=== PATIENT | female | born 1930 | race Caucasian/White ===

== ENCOUNTER 2017-05-18 18:33 | Inpatient (IN) | payer MEDICARE, BC ==
[~2017-05-18] VITALS: Ht 165.1 cm; Wt 81.6 kg
--- NOTE | 2017-05-18 18:45 | NUR ---
[id number] FROM [facility] WHILE SITTING ON A WHEELCHAIR. NO TRAUMA. HYPOTENSIVE IN FIELD 63/48, 400CC IV NS GIVEN BY EMS. PATIENT IS A/OX 1, BREATHING EVEN AND UNLABORED. NO LONGER HYPOTENSIVE UPON ARRIVAL. PATIENT'S VITALS STABLE. SAFETY AND COMFORT MEASURES IN PLACE. AWAITING MD ORDERS.
--- NOTE | 2017-05-18 18:55 | NUR ---
DAUGHTERS, FELIX AGGIE [phone], AVERY [phone].
[2017-05-18] MEDS ORDERED: IV NS 0.9% 1,000 ML BAG IV ONE (19:00)
--- NOTE | 2017-05-18 19:02 | NUR ---
CORRUGATOR SUPERVISOR AT BEDSIDE FOR BLOOD DRAW.
[2017-05-18 19:11] LABS: BASOPHILS # (AUTO) 0.3 /CMM (0.0-0.2); BASOPHILS % (AUTO) 2.4 % (0.0-2.0); EOSINOPHILS # (AUTO) 0.3 /CMM (0.0-0.7); EOSINOPHILS % (AUTO) 2.1 % (0.0-6.0); HEMATOCRIT 46 % (33-45); HEMOGLOBIN 15.3 g/dL (11.5-14.8); LYMPHOCYTES # (AUTO) 1.4 /CMM (0.8-4.8); LYMPHOCYTES % (AUTO) 11.3 % (20.0-44.0); MEAN CORPUSCULAR HEMOGLOBIN 31 PG (26.0-33.0); MEAN CORPUSCULAR HGB CONC 33 g/dl (31.0-36.0); MEAN CORPUSCULAR VOLUME 94 fL (82-100); MONOCYTES # (AUTO) 0.8 /CMM (0.1-1.30); MONOCYTES % (AUTO) 6.7 % (2.0-12.0); NEUTROPHILS # (AUTO) 9.3 /CMM (1.8-8.9); NEUTROPHILS % (AUTO) 77.5 % (43.0-81.0); PLATELET COUNT (AUTO) 229 /CMM (150-450); RDW COEFFICIENT OF VARIATION 13.4 (11.5-15.0); RED BLOOD CELL COUNT(AUTO) 4.86 MIL/uL (4.0-5.2); WHITE BLOOD COUNT (AUTO) 12.1 K/uL (4.3-11.0)
--- NOTE | 2017-05-18 19:19 | NUR ---
Report given to Jesus LOMBARDI for [facility].
--- NOTE | 2017-05-18 19:20 | NUR ---
RECEIVED REPORT FROM HARJIT ADAMS FOR [facility]. PT APPEARS COMFORTABLE. RADIOLOGY AT BEDSIDE FOR CXR.
[2017-05-18 19:21] LABS: CALCIUM, SERUM 9.7 mg/dL (8.5-10.1); CARBON DIOXIDE 31 mmol/L (21-32); CHLORIDE 103 mmol/L (98-107); CREATININE 1.1 mg/dL (0.6-1.3); GLUCOSE 132 mg/dL (74-106); POTASSIUM 3.8 mmol/L (3.5-5.1); SODIUM SERUM 140 mmol/L (136-145); UREA NITROGEN, BLOOD 23 mg/dL (7-18)
[2017-05-18 19:25] LABS: INR 0.97 (0.87-1.13); PROTHROMBIN TIME 10.1 SECS (9.5-12.7)
[2017-05-18 19:29] LABS: TROPONIN I < 0.017 ng/mL (0.00-0.056)
[2017-05-18] MEDS ORDERED: IV NS 0.9% 250 ML IV ONE (19:31)
[2017-05-18] MEDS ORDERED: IOHEXOL-350 100 ML VIAL IV ONE (19:31)
[2017-05-18 19:34] LABS: ALANINE AMINOTRANSFERASE 25 U/L (12-78); ALBUMIN 3.6 g/dL (3.4-5.0); ALKALINE PHOSPHATASE 80 U/L (46-116); ASPARTATE AMINOTRANSFERASE 23 U/L (15-37); B-TYPE NATRIURETIC PEPTIDE 498 PG/ML (0-125); BILIRUBIN,DIRECT 0.1 mg/dL (0.0-0.2); BILIRUBIN,TOTAL 0.5 mg/dL (0.2-1.0); TOTAL PROTEIN, SERUM 6.5 g/dL (6.4-8.2)
--- NOTE | 2017-05-18 19:38 | NUR ---
PT TO CT.
--- NOTE | 2017-05-18 20:00 | NUR ---
CALLED RN SUPP FOR BED
--- NOTE | 2017-05-18 20:05 | NUR ---
PT RETURNED FROM CT.
--- NOTE | 2017-05-18 20:08 | NUR ---
PAGED CATHIE FOR BED 8
--- NOTE | 2017-05-18 20:23 | NUR ---
URINE COLLECTED. CALLED LAB FOR AUTOMATION AND CONTROLS SUPERVISOR.
[2017-05-18 20:30] LABS: APPEARANCE,URINE Clear (CLEAR); BILIRUBIN,URINE Negative (NEGATIVE); BLOOD, URINE Trace-intact Ery/uL (NEGATIVE); COLOR,URINE Yellow (YELLOW); KETONES,URINE Negative (NEGATIVE); LEUKOCYTE ESTERASE ,URINE Negative (NEGATIVE); NITRITE, URINE Negative (NEGATIVE); PROTEIN,URINE Negative (NEGATIVE); UGLUCOSE Negative (NEGATIVE); UROBILINOGEN,URINE 0.2 EU/dL (0.2)
--- NOTE | 2017-05-18 20:32 | NUR ---
REPORT GIVEN TO HARJIT AMOR FOR TELE BED 310-2
--- NOTE | 2017-05-18 20:41 | NUR ---
INFORMED RN ZULEYMA IVF TRANSFUSING ON ADMISSION.
[2017-05-18 20:42] LABS: SQUAMOUS EPITHELIAL CELL,UR Moderate /HPF (None Seen)
[2017-05-18 20:43] LABS: BACTERIA,URINE Few /HPF (None Seen); RBC,URINE 0-2 /HPF (0-2); WBC,URINE 0-2 /HPF (0-3)
--- NOTE | 2017-05-18 20:59 | NUR ---
PT TRANSFERRED TO [facility] BED 310-2 PER ACLS PROTOCOL.
--- NOTE | 2017-05-18 21:30 | NUR ---
RN OPENING NOTES RECEIVED PATIENT FROM ER IN STABLE CONDITION. ALERT AND ORIENTED X3. NO C/O PAIN AT THIS TIME. VS TABLE. TELE /SINUS RHYTHM 73 BPM. RESPIRATIONS EVEN AND UNLABORED. IV ACCES ON LEFT AC PATENT AND INTACT. FLUSHING WELL. NO REDNESS OR INFILTRATION NOTED. BS X4. PICTURES TAKEN AND PLACED IN THE CHART. AWAITING FOR MD ORDER. BED IN LOW AND LOCKED POSITION. SIDE RAILS X2. CALL LIGHT WITHIN EASY REACH. CONTINUE TO MONITOR AND ASSESS DURING SHIFT.
[2017-05-18 22:00] VITALS: BP 131/87
[2017-05-18] MEDS ORDERED: ONDANSETRON HCL/PF 4 MG/2 ML VIAL IVP PRN (22:00)
[2017-05-18] MEDS ORDERED: ACETAMINOPHEN 325 MG TABLET PO PRN (22:00)
[2017-05-18] MEDS: IV NS 0.9% 1,000 ML IV PRN (23:01)
[2017-05-19] VITALS: BP 119/77
[2017-05-19] MEDS ORDERED: LORAZEPAM INJ 2 MG/ML VIAL IVP PRN (03:00)
[2017-05-19] MEDS ORDERED: LEVOFLOXACIN 500 MG /D5W 100ML 500 MG in PREMIX 1 EA IV SCH (03:00)
[2017-05-19] MEDS ORDERED: LEVOFLOXACIN 500 MG /D5W 100ML 100 ML IV ONE (03:41)
[2017-05-19 04:00] VITALS: BP 137/85
[2017-05-19 07:27] LABS: BASOPHILS % (AUTO) 0.4 % (0.0-2.0); EOSINOPHILS # (AUTO) 0.4 /CMM (0.0-0.7); EOSINOPHILS % (AUTO) 3.9 % (0.0-6.0); HEMATOCRIT 45 % (33-45); HEMOGLOBIN 14.9 g/dL (11.5-14.8); LYMPHOCYTES # (AUTO) 1.8 /CMM (0.8-4.8); LYMPHOCYTES % (AUTO) 19.7 % (20.0-44.0); MEAN CORPUSCULAR HEMOGLOBIN 32 PG (26.0-33.0); MEAN CORPUSCULAR HGB CONC 34 g/dl (31.0-36.0); MEAN CORPUSCULAR VOLUME 95 fL (82-100); MONOCYTES # (AUTO) 0.8 /CMM (0.1-1.30); MONOCYTES % (AUTO) 8.5 % (2.0-12.0); NEUTROPHILS % (AUTO) 67.5 % (43.0-81.0); PLATELET COUNT (AUTO) 210 /CMM (150-450); RDW COEFFICIENT OF VARIATION 13.9 (11.5-15.0); RED BLOOD CELL COUNT(AUTO) 4.67 MIL/uL (4.0-5.2); WHITE BLOOD COUNT (AUTO) 8.9 K/uL (4.3-11.0)
--- NOTE | 2017-05-19 07:30 | NUR ---
RN CLOSING NOTES PATIENT SLEEPING IN BED, EASILY AROUSABLE. ALERT AND ORIENTED X3. VS TABLE. RESPIRATIONS EVEN AND UNLABORED. IV ACCES ON LEFT AC PATENT AND INTACT. INFUSING NS AT 80 ML/HR. NO REDNESS OR INFILTRATION NOTED. ALL MEDICATIONS GIVEN PER MD ORDER. BED IN LOW AND LOCKED POSITION. SIDE RAILS X2. CALL LIGHT WITHIN EASY REACH. WILL ENDORSE TO RN DAY SHIFT FOR CONTINUITY OF CARE.
--- NOTE | 2017-05-19 07:30 | NUR ---
RN NOTES RECEIVED PATIENT IN BED RESTING, RESPONSIVE, A/0X2-3, FORGETFUL. NO ACUTE DISTRESS, NO SOB NOTED. DENIES ANY PAIN OR DISCOMFORT AT THIS TIME. ON TELEMONITOR SR 76. IV SITE INTACT AND PATENT, FLUIDS INFUSING WELL. KEPT PATIENT SAFE AND COMFORTABLE. BED IN LOCKED, LOW POSITION, SIDERAILS UP X2, CALL LIGHT IN REACH. WILL CONTINUE TO MONITOR ACCORDINGLY.
[2017-05-19 07:52] LABS: CALCIUM, SERUM 9.1 mg/dL (8.5-10.1); CARBON DIOXIDE 29 mmol/L (21-32); CHLORIDE 105 mmol/L (98-107); CREATININE 0.8 mg/dL (0.6-1.3); GLUCOSE 94 mg/dL (74-106); MAGNESIUM 1.7 mg/dL (1.8-2.4); PHOSPHORUS 3.3 mg/dL (2.5-4.9); POTASSIUM 3.1 mmol/L (3.5-5.1); SODIUM SERUM 142 mmol/L (136-145); UREA NITROGEN, BLOOD 16 mg/dL (7-18)
[2017-05-19 08:00] VITALS: BP 141/77
[2017-05-19 08:33] LABS: THYROID STIMULATING HORMONE 2.189 uIU/mL (0.358-3.74)
[2017-05-19 08:35] LABS: TROPONIN I 0.023 ng/mL (0.00-0.056)
[2017-05-19 09:00] VITALS: BP_SYST 122; BP_SYST 129; BP_SYST 135; BP_DIAS 69; BP_DIAS 77; BP_DIAS 82
--- NOTE | 2017-05-19 09:00 | NUR ---
RN NOTES: ORTHOSTATIC BP SUPINE: BP= 135/82, HR= 86 SITTING: BP= 122/77, HR= 88 STANDING: BP= 129/69, HR= 100
[2017-05-19] MEDS: PANTOPRAZOLE 40 MG TABLET.DR PO SCH (10:16)
[2017-05-19] MEDS: Magnesium 1GM/D5W 100ML PREMIX 100 ML IV SCH ×2 (12:07→13:13)
[2017-05-19] MEDS: IV NS 0.9% 1,000 ML IV PRN (12:12)
[2017-05-19] MEDS: POTASSIUM CHLORIDE 20 MEQ TAB.PRT.SR PO SCH ×2 (12:39→19:29)
[2017-05-19 16:00] VITALS: BP_SYST 154; BP_SYST 167; BP_DIAS 91; BP_DIAS 95
[2017-05-19] MEDS ORDERED: CLOP75TA2 PO (17:56)
[2017-05-19] MEDS ORDERED: DONE5TAB3 PO (17:56)
[2017-05-19] MEDS ORDERED: CALC300T4 PO (17:56)
[2017-05-19] MEDS ORDERED: QUET25TA PO (17:56)
[2017-05-19] MEDS ORDERED: ATEN100T PO (17:56)
[2017-05-19] MEDS ORDERED: BRIM5DRO EACHEYE (17:56)
[2017-05-19] MEDS ORDERED: BIMA2.5D5 EACHEYE (17:56)
[2017-05-19] MEDS ORDERED: POT25TAB5 PO (17:56)
[2017-05-19] MEDS ORDERED: FLEC100T3 PO (17:56)
[2017-05-19] MEDS ORDERED: AMLO5TAB4 PO (17:56)
[2017-05-19] MEDS ORDERED: LATA2.5D2 EACHEYE (17:56)
[2017-05-19] MEDS ORDERED: POTA25TA7 PO (17:56)
[2017-05-19] MEDS ORDERED: MELO15TA13 PO (17:56)
[2017-05-19] MEDS ORDERED: LEVE500T9 PO (17:56)
[2017-05-19] MEDS ORDERED: LISI-607 PO (17:56)
[2017-05-19] MEDS ORDERED: MULT-331 PO (17:56)
[2017-05-19] MEDS ORDERED: CALC-838 PO (17:56)
--- NOTE | 2017-05-19 19:00 | NUR ---
RN NOTES PER SHERRELL GONZALEZ NP, CONTINUE ALL HOME MEDICATIONS ON MED RECON.
--- NOTE | 2017-05-19 19:30 | NUR ---
MS/RN NOTES RECEIVED PT. LYING IN BED. PT. IS AWAKE, ALERT AND ORIENTED X2-3 AND IS FORGETFUL. BREATHING EVEN AND UNLABORED ON ROOM AIR. NO SOB, RESPIRATORY DISTRESS OR COMPLAINTS OF PAIN NOTED AT THIS TIME. PT. DENIES FEELING LIGHTHEADED OR DIZZY. PT. WITH LEFT AC 20 GAUGE PERIPHERAL IV PRESENT, PATENT AND INTACT ADMINISTERING TO PT. NS @ 40ML/HR. PT. INSTRUCTED TO USE CALL LIGHT FOR ASSISTANCE BEFORE AMBULATING. PT. VERBALIZED UNDERSTANDING. BED LOCKED AND IN LOWEST POSITION, SIDE RAILS UP X2, CALL LIGHT WITHIN REACH, BED ALARM ON, WILL CONTINUE TO MONITOR.
--- NOTE | 2017-05-19 19:30 | NUR ---
RN CLOSING NOTES PATIENT IN BED RESTING. NO ACUTE DISTRESS, NO SOB NOTED. ALL NEEDS ATTENDED AND PROVIDED. KEPT PATIENT SAFE AND COMFORTABLE. BED IN LOCKED, LOW POSITION, SIDERAILS UPX2, CALL LIGHT IN REACH. ENDORSED TO REINFORCING METAL WORKER RN FOR [facility]. FAXED MED RECON TO PHARMACY, VERIFIED BY CHERRI THAT THEY GOT IT.
[2017-05-19 22:00] VITALS: BP 123/97
[2017-05-20] MEDS ORDERED: LEVETIRACETAM (250 MG) 250 MG TABLET PO ONE (00:48)
[2017-05-20] MEDS ORDERED: LEVETIRACETAM (250 MG) 250 MG TABLET PO SCH ×2 (01:00→09:00)
[2017-05-20] MEDS ORDERED: LEVOFLOXACIN 250 MG /D5W 50 ML 250 MG in PREMIX 1 EA IV SCH ×2 (06:00→09:00)
--- NOTE | 2017-05-20 06:27 | NUR ---
MS/RN NOTES PT. IS LYING IN BED RESTING. BREATHING EVEN AND UNLABORED ON ROOM AIR. NO SOB, RESPIRATORY DISTRESS OR COMPLAINTS OF PAIN NOTED AT THIS TIME. PT. HAS NO COMPLAINTS OF FEELING LIGHTHEADED OR DIZZY AT THIS TIME AND THROUGHOUT SHIFT. PT. WITH LEFT AC 20 GAUGE PERIPHERAL IV PRESENT, PATENT AND INTACT ADMINISTERING TO PT. NS @ 40ML/HR. ALL PT. NEEDS MET. SEIZURE PRECAUTIONS IMPLEMENTED AND IN PLACE. FREQUENT NEURO CHECKS PERFORMED. BED LOCKED AND IN LOWEST POSITION, SIDE RAILS UP X2, CALL LIGHT WITHIN REACH, BED ALARM ON, WILL ENDORSE TO DAYSHIFT NURSE FOR CONTINUITY OF CARE.
[2017-05-20 06:32] LABS: BASOPHILS % (AUTO) 0.3 % (0.0-2.0); EOSINOPHILS # (AUTO) 0.4 /CMM (0.0-0.7); EOSINOPHILS % (AUTO) 3.9 % (0.0-6.0); HEMATOCRIT 47 % (33-45); HEMOGLOBIN 15.7 g/dL (11.5-14.8); LYMPHOCYTES # (AUTO) 1.4 /CMM (0.8-4.8); LYMPHOCYTES % (AUTO) 14.8 % (20.0-44.0); MEAN CORPUSCULAR HEMOGLOBIN 32 PG (26.0-33.0); MEAN CORPUSCULAR HGB CONC 34 g/dl (31.0-36.0); MEAN CORPUSCULAR VOLUME 95 fL (82-100); MONOCYTES # (AUTO) 0.8 /CMM (0.1-1.30); NEUTROPHILS # (AUTO) 7.1 /CMM (1.8-8.9); PLATELET COUNT (AUTO) 204 /CMM (150-450); RDW COEFFICIENT OF VARIATION 13.9 (11.5-15.0); RED BLOOD CELL COUNT(AUTO) 4.96 MIL/uL (4.0-5.2); WHITE BLOOD COUNT (AUTO) 9.7 K/uL (4.3-11.0)
[2017-05-20 06:49] LABS: TROPONIN I < 0.017 ng/mL (0.00-0.056)
[2017-05-20 06:50] LABS: ALANINE AMINOTRANSFERASE 29 U/L (12-78); ALBUMIN 3.5 g/dL (3.4-5.0); ALKALINE PHOSPHATASE 80 U/L (46-116); ASPARTATE AMINOTRANSFERASE 29 U/L (15-37); BILIRUBIN,TOTAL 0.9 mg/dL (0.2-1.0); CALCIUM, SERUM 9.6 mg/dL (8.5-10.1); CARBON DIOXIDE 35 mmol/L (21-32); CHLORIDE 104 mmol/L (98-107); CREATININE 0.8 mg/dL (0.6-1.3); GLUCOSE 93 mg/dL (74-106); MAGNESIUM 1.9 mg/dL (1.8-2.4); POTASSIUM 4.4 mmol/L (3.5-5.1); SODIUM SERUM 143 mmol/L (136-145); TOTAL PROTEIN, SERUM 6.7 g/dL (6.4-8.2); UREA NITROGEN, BLOOD 13 mg/dL (7-18)
[2017-05-20 08:00] VITALS: BP_SYST 144; BP_SYST 156; BP_SYST 159; BP_SYST 164; BP_DIAS 103; BP_DIAS 109; BP_DIAS 88
--- NOTE | 2017-05-20 08:00 | NUR ---
MS RN AM NOTES RECEIVED PATIENT ALERT AND ORIENTED X3. NO C/O PAIN AT THIS TIME. VS STABLE. RESPIRATIONS EVEN AND UNLABORED. IV ACCES ON LEFT AC PATENT AND INTACT. FLUSHING WELL. NO REDNESS OR INFILTRATION NOTED.BED IN LOW AND LOCKED POSITION. SIDE RAILS X2. CALL LIGHT WITHIN EASY REACH. CONTINUE TO MONITOR.
[2017-05-20] MEDS ORDERED: CALCIUM CARBONATE 500 MG TAB.CHEW PO PRN ×2 (08:30→13:30)
[2017-05-20] MEDS ORDERED: AMLODIPINE BESYLATE 5 MG TABLET PO SCH (09:00)
[2017-05-20] MEDS ORDERED: FLECAINIDE ACETATE (100 MG) 100 MG TABLET PO SCH (09:00)
[2017-05-20] MEDS ORDERED: CHOLECALCIFEROL 1,000 UNIT TABLET (VIT D3) PO SCH (09:00)
[2017-05-20] MEDS: PANTOPRAZOLE 40 MG TABLET.DR PO SCH (09:12)
[2017-05-20] MEDS: MELOXICAM 7.5 MG TABLET PO SCH (09:33)
[2017-05-20] MEDS: CLOPIDOGREL BISULFATE 75 MG TABLET PO SCH (09:33)
[2017-05-20] MEDS: MULTIVITAMINS,THERAGRAN 1 UDTAB TABLET PO SCH (09:33)
[2017-05-20] MEDS: LEVETIRACETAM (250 MG) 250 MG TABLET PO SCH ×2 (09:34→21:08)
[2017-05-20] MEDS: LISINOPRIL (5MG) 5 MG TABLET PO SCH ×2 (09:34→17:17)
[2017-05-20 12:15] VITALS: BP 143/73
[2017-05-20] MEDS: BRIMONIDINE TARTRATE OPHT SOLN 5 ML BOTTLE EACHEYE SCH ×3 (12:51→17:16)
--- NOTE | 2017-05-20 13:00 | NUR ---
ALPHAGAN EYEDROPS NOT GIVEN BECAUSE IT WAS JUST ADMINISTERED AN HOUR AGO.
[2017-05-20 16:00] VITALS: BP 142/89
[2017-05-20] MEDS: LATANOPROST EYE DROP 0.005% 2.5 ML BOTTLE EACHEYE SCH (17:18)
[2017-05-20] MEDS ORDERED: BIMATOPROST 2.5 ML DROPS OP SCH (18:00)
--- NOTE | 2017-05-20 18:03 | NUR ---
PT RESTING IN BED DENYING ANY PAIN OR DISTRESS.ON TELE WITH SR WITH 1ST DEGREE AV BLOCK.WILL CONTINUE TO MONITOR.
--- NOTE | 2017-05-20 19:30 | NUR ---
MS/PHONE SCREENER; RECEIVED PT IN BED AWAKE, ALERT AND ORIENTED X 3. SPEECH IS CLEAR. BREATHING NON LABORED. DENIES ANY PAIN. SEIZURE'S PRECAUTION OBSERVED. SIDE RAILS ARE UP AND PADDED FOR SAFETY. BED ON LOWER POSITION AND LOCKED FOR SAFETY. PT ON TELEMETRY TO MONITOR. HL ON LAC # 20 FLUSHED WITH NS PATENT AND INTACT NO PAIN NOR REDNESS AND SWELLING. CONTINUE TO MONITOR.
[2017-05-20 20:00] VITALS: BP 123/78
[2017-05-20] MEDS ORDERED: QUETIAPINE FUMARATE 25 MG TABLET PO SCH (20:00)
[2017-05-20] MEDS ORDERED: DONEPEZIL 5 MG TABLET PO SCH (22:00)
[2017-05-20] MEDS ORDERED: POTASSIUM CHLORIDE 10 MEQ TABLET.SA PO SCH (22:00)
[2017-05-20] MEDS ORDERED: ATENOLOL 50 MG TABLET PO SCH (22:00)
[2017-05-20] MEDS ORDERED: POTASSIUM BICARBONATE/CIT AC 25 MEQ TABLET.EFF PO SCH (22:00)
--- NOTE | 2017-05-20 22:00 | NUR ---
TELE/CONSERVATION AGENT; EKG DONE BY THE RT AND CHARGE NURSE MADE AWARE OF THE RESULT. AT THIS TIME PT IS AWAKE ALERT AND COHERENT. NO S/S OF DISTRESS.
[2017-05-21] VITALS: BP 160/94
[2017-05-21 04:00] VITALS: BP_SYST 130; BP_SYST 136; BP_SYST 152; BP_DIAS 83; BP_DIAS 86; BP_DIAS 93
[2017-05-21 06:23] VITALS: BP 155/77
--- NOTE | 2017-05-21 06:38 | NUR ---
TELE/SHORE MAN; PT ON SR WITH 1ST DEGREE AV BLOCK 73. SLEPT FAIRLY. PT IS CONTINENT AND INCONTINENT. ASSIST ALSO TO THE BATHROOM VOIDED. PT WITH PERIODS OF FORGETFUL. CONTINUE TO MONITOR. CALL LIGHT WITHIN REACH. WILL ENDORSE TO THE DAY SHIFT NURSE.
[2017-05-21 08:00] VITALS: BP 155/77
[2017-05-21] MEDS ORDERED: POTASSIUM CHLORIDE 20 MEQ TAB.PRT.SR PO SCH (09:00)
[2017-05-21] MEDS: PANTOPRAZOLE 40 MG TABLET.DR PO SCH (09:17)
[2017-05-21] MEDS: MULTIVITAMINS,THERAGRAN 1 UDTAB TABLET PO SCH (09:17)
[2017-05-21] MEDS: CLOPIDOGREL BISULFATE 75 MG TABLET PO SCH (09:17)
[2017-05-21] MEDS: LISINOPRIL (5MG) 5 MG TABLET PO SCH ×2 (09:18→17:00)
[2017-05-21] MEDS: MELOXICAM 7.5 MG TABLET PO SCH (09:18)
[2017-05-21] MEDS: BRIMONIDINE TARTRATE OPHT SOLN 5 ML BOTTLE EACHEYE SCH ×3 (09:19→17:15)
[2017-05-21] MEDS: LEVETIRACETAM (250 MG) 250 MG TABLET PO SCH (09:22)
[2017-05-21] MEDS ORDERED: FLEC100T3 PO (11:32)
[2017-05-21 16:00] VITALS: BP 103/66
[2017-05-21 17:00] VITALS: BP 103/66
[2017-05-21] MEDS: LATANOPROST EYE DROP 0.005% 2.5 ML BOTTLE EACHEYE SCH (17:14)
--- NOTE | 2017-05-21 19:00 | NUR ---
DISCHARGED PT VIA AMBULANCE WITH STABLE V/S TO [facility].REPORT CALLED IN TO [facility] OF [facility].PT'S DAUGHTERS AWARE AND PT'S BELONGINGS SENT WITH THE PT UPON DISCHARGE.PT WILL GO TO ROOM 311 OF [facility].NO C/O PAIN OR DISTRESS.
[2017-05-21] MEDS ORDERED: QUETIAPINE FUMARATE 25 MG TABLET PO SCH (20:00)
[2017-05-21] MEDS ORDERED: POTASSIUM CHLORIDE 10 MEQ TABLET.SA PO SCH (22:00)
[2017-05-21] MEDS ORDERED: DONEPEZIL 5 MG TABLET PO SCH (22:00)
== END 2017-05-21 19:05 | DRG 73 ==
LOC: ER 18:34 → TELE 20:22 → MED 05-19 11:35 → TELE 05-20 11:00
PROVIDERS: ADMIT Internal Medicine; ATTEND Internal Medicine
DX: G90.8 Other disorders of autonomic nervous system (principal); G93.41 Metabolic encephalopathy; D68.59 Other primary thrombophilia; I48.91 Unspecified atrial fibrillation; I50.32 Chronic diastolic (congestive) heart failure; G40.909 Epilepsy, unspecified, not intractable, without status epilepticus; E78.5 Hyperlipidemia, unspecified; H35.30 Unspecified macular degeneration; M84.48XS Pathological fracture, other site, sequela; Z85.3 Personal history of malignant neoplasm of breast; Z88.8 Allergy status to other drugs, medicaments and biological substances; Z91.013 Allergy to seafood
CPT/HCPCS: 36415; 70450-TC; 71010-TC; 78582; 80048-TC; 80053-TC; 80061-TC; 80076-TC; 81000-TC; 82306; 82728-TC; 83540-TC; 83605-TC; 83735-TC; 83880; 84100-TC; 84439-TC; 84443-TC; 84484-TC; 85025-TC; 85730-TC; 87040-TC; 87081-TC; 87086-TC; 92611-TC; 93307-TC; 93880-TC; 93970-TC; 95819-TC; 97116-TC; 97530-TC; A4216; A4606; A9540; A9567; J1956; J3475; J7030; J7050; Q9967; Z7610

== ENCOUNTER 2017-05-25 12:56 | Outpatient (CLI) | payer MEDICARE, BC ==
[~2017-05-25 12:56] MED LIST: AMLO5TAB4 PO; ATEN100T PO; BIMA2.5D5 EACHEYE; BRIM5DRO EACHEYE; CALC-838 PO; CALC300T4 PO; CLOP75TA15 PO; DONE5TAB7 PO; FLEC100T3 PO; LATA2.5D2 EACHEYE; LEVE500T9 PO; LISI-607 PO; MELO15TA13 PO; MULT-331 PO; POT25TAB5 PO; POTA25TA7 PO; QUET25TA PO
[2017-05-25 13:07] VITALS: BP 127/79
== END 2017-05-25 23:59 | disposition home or self-care (01) ==
LOC: MSC 12:56
PROVIDERS: ATTEND Internal Medicine
DX: F03.90 Unspecified dementia, unspecified severity, without behavioral disturbance, psychotic disturbance, mood disturbance, and anxiety (principal); I50.32 Chronic diastolic (congestive) heart failure; G40.909 Epilepsy, unspecified, not intractable, without status epilepticus; I48.91 Unspecified atrial fibrillation; E78.5 Hyperlipidemia, unspecified; E78.00 Pure hypercholesterolemia, unspecified; Z85.3 Personal history of malignant neoplasm of breast; Z79.01 Long term (current) use of anticoagulants